=== PATIENT | male | born 1995 | race Caucasian/White ===

== ENCOUNTER 2023-05-16 18:49 | Emergency (ER) | payer OTHER, SELFPAY ==
--- NOTE | ~2023-05-16 | XR_ITS ---
EXAMINATION: XR chest 2V Exam Date/Time: 05/16/2023 19:10 [employer]E [employer] HISTORY: chest pain shortness of breath Comparison: None. RESULT: Lines, tubes, and devices: None. Lungs and pleura: Clear. Cardiomediastinal silhouette: Normal. Other: No acute osseous or upper abdominal finding. IMPRESSION: No acute cardiopulmonary process. Reviewed, dictated and finalized at location K. YLENE [employer]
--- NOTE | 2023-05-16 18:53 | ECG_ITS ---
Measurements Intervals [place] Rate: 104 P: 52 NH: 166 QRS: -40 QRSD: 100 T: 21 QT: 338 QTc: 446 Interpretive Statements SINUS TACHYCARDIA MARKED LEFT AXIS DEVIATION [QRS AXIS < -30] OTHERWISE WITHIN NORMAL LIMITS ] NO PREVIOUS ECG AVAILABLE FOR COMPARISON Electronically Signed On 05-17-2023 7:38:12 DEGREE CLERK by Gene Duggan M.D.
[2023-05-16 18:59] VITALS: BP 139/86; PULSE 111; RESP 20; TEMP 36.3; O2SAT 97
--- NOTE | 2023-05-16 21:54 | PC.NURSE ---
Patient is a hard stick and nurses X3 have attempted to get blood work.
[2023-05-16 22:09] LABS: Basophils Percent Auto 0.5 % (0.2-1.2); Eosinophils Absolute Auto 0.1 K/mm3 (0-0.3); Eosinophils Percent Auto 2.4 % (0-4.4); Hematocrit 44.8 % (42.0-52.0); Hemoglobin 14.2 g/dL (14.0-18.0); Immature Granulocyte Absolute 0.04 K/mm3 (0.00-0.031); Immature Granulocyte Percent A 0.7 % (0-0.5); Lymphocytes Absolute Auto 1.05 K/mm3 (0.9-3.2); Lymphocytes Percent Auto 18.4 % (18.3-44.2); Mean Corpuscular HGB Conc 31.7 g/dl (32-36); Mean Corpuscular Hemoglobin 28.7 pg (26-34); Mean Corpuscular Volume 90.7 fl (80-100); Mean Platelet Volume 9.3 fl (7.4-10.4); Monocytes Absolute Auto 0.7 K/mm3 (0.1-0.6); Monocytes Percent Auto 12.1 % (2.6-8.5); Neutrophils Absolute Auto 3.8 K/mm3 (1.3-6.7); Neutrophils Percent Auto 65.9 % (45.5-73.1); Platelet Count Result 230 k/mm3 (150-375); Red Blood Count 4.94 M/mm3 (4.6-6.20); Red Cell Distribution Width 13.9 % (11.5-14.5); White Blood Count 5.7 K/mm3 (4.5-10.0)
--- NOTE | 2023-05-16 22:09 | PC.NURSE ---
Per patient and family, the tech attempted to get blood on patient at approx 1730 and was unsuccessful. RN was not aware at that time. Blood obtained by gila Alvarez RN
[2023-05-16 22:20] LABS: Alanine Aminotransferase 53 U/L (6-50); Albumin Level 4.2 g/dL (3.5-5.1); Alkaline Phosphatase 66 U/L (38-126); Anion Gap 10 mmol/L (8-16); Aspartate Amino Transferase 33 U/L (17-59); Bilirubin,Total 0.6 mg/dL (0.2-1.3); Blood Urea Nitrogen 12 mg/dL (9-20); Calcium 9.2 mg/dL (8.4-10.2); Carbon Dioxide 21 mmol/L (22-30); Chloride 108 mmol/L (98-107); Estimated CRCL calculation 117 ml/min; Estimated Glomerular Filt Rate > 60; Glucose 97 mg/dL (65-110); Lipase 69 U/L (23-300); Potassium 3.8 mmol/L (3.4-5.0); Sodium 139 mmol/L (137-145)
[2023-05-16 22:21] LABS: INR 0.9; Prothrombin Time 12.8 Seconds (11.1-14.7)
[2023-05-16 22:22] LABS: Partial Thromboplastin Time 25.7 SECONDS (22.3-36.8)
[2023-05-16 22:32] LABS: Troponin I < 0.012 ng/mL (0.000-0.034)
[2023-05-16 23:17] VITALS: O2SAT 97
[2023-05-16 23:47] VITALS: PULSE 93
[2023-05-16 23:50] VITALS: BP 156/80; PULSE 91; RESP 14; O2SAT 98
[2023-05-17] MEDS: ASPIRIN 81 MG CHEWABLE TABLET 324 MG PO (00:10)
[2023-05-17 00:23] VITALS: PULSE 83; RESP 21; O2SAT 99
[2023-05-17 00:33] VITALS: PULSE 87; RESP 18; O2SAT 100
[2023-05-17 00:45] VITALS: PULSE 90; RESP 11; O2SAT 100
--- NOTE | 2023-05-17 00:50 | ED.CHESTPAIN ---
HPI - Chest Pain General Chief Complaint: Chest Pain Stated Complaint: chest pain Time Seen by Provider: 05/17/23 00:17 Source: patient Mode of arrival: ambulatory Limitations: no limitations History of Present Illness HPI narrative: This is a 28-year-old male that presents to the emergency department for intermittent chest pain. Ongoing over the last several weeks. Reports the pain is burning in nature. He has tried Pepcid with some relief. Denies fever, shortness of breath or lower extremity edema. Related Data Allergies Allergy/AdvReac Type Severity Reaction Status Date / Time amoxicillin Allergy Unknown Swelling Verified 05/16/23 18:50 Penicillins Allergy Unknown Swelling Verified 05/16/23 18:50 Review of Systems Review of Systems: CONSTITUTIONAL: Denies fever CARDIOVASCULAR: Reports chest pain. Denies edema. RESPIRATORY: Denies dyspnea. GASTROINTESTINAL: Denies abdominal pain, nausea, vomiting All systems reviewed & are unremarkable except as noted in HPI and below PMFSH Past Medical History Medical History (Updated 05/17/23 @ 00:58 by Gladis Corbin PA-C) History of migraine headaches Social History Social History (Updated 05/17/23 @ 00:57 by Gladis Corbin PA-C) Smoking status: Current every day smoker Exam Narrative: GENERAL: Well-appearing, well-nourished, and in no acute distress. HEAD: Normocephalic, atraumatic. EYES: EOMI. CHEST: Clear to auscultation. No respiratory distress. No wheezes rales or rhonchi HEART: Regular rate and rhythm. No murmur heard. Normal peripheral pulses. ABDOMEN: Soft, nontender, nondistended, normal active bowel sounds. EXTREMITIES: Normal range of motion. No edema. SKIN: Warm, dry, no rash. NEURO: No focal deficits. Alert and oriented x3. PSYCH: Normal mood and affect Course Course Emergency Course: Patient updated on his workup thus far. Resting comfortably. He refuses any further evaluation or treatment Vital Signs Vital signs: Vital Signs Temperature 97.4 F L 05/16/23 18:59 Pulse Rate 111 H 05/16/23 18:59 Respiratory Rate 20 05/16/23 18:59 Blood Pressure 139/86 05/16/23 18:59 Pulse Oximetry 97 05/16/23 18:59 Oxygen Delivery Room Air 02/04/24 18:59 Temperature 97.4 F L 05/16/23 18:59 Pulse Rate 91 05/16/23 23:50 Respiratory Rate 14 05/16/23 23:50 Blood Pressure 156/80 H 05/16/23 23:50 Pulse Oximetry 98 05/16/23 23:50 Oxygen Delivery Room Air 05/16/23 18:59 MDM - Chest Pain MDM Narrative Medical decision making narrative: Patient presents to the emergency department for intermittent chest pain ongoing over the last several weeks. Tachycardic upon arrival, this normalized without intervention. Patient resting comfortably upon my evaluation, in no acute distress. CBC and metabolic panel without concerning findings. EKG without acute ST changes in baseline troponin is negative. His chest x-ray is normal. Patient updated on his workup thus far. Resting comfortably. He refuses any further evaluation or treatment. He will be started on Protonix. He was instructed to return at any time for further evaluation and management Differential Diagnosis Differential diagnosis: Likely stable angina, atypical chest pain, costochondritis, chest pain and other (GERD) Lab Data Attestation: I reviewed the patient's lab results. 05/16/23 22:03 05/16/23 22:03 Labs: Lab Results 05/16/23 Range/Units 22:03 WBC 5.7 (4.5-10.0) K/mm3 RBC 4.94 (4.6-6.20) M/mm3 Hgb 14.2 (14.0-18.0) g/dL Hct 44.8 (42.0-52.0) % MCV 90.7 (80-100) fl MCH 28.7 (26-34) pg MCHC 31.7 L (32-36) g/dl RDW 13.9 (11.5-14.5) % Plt Count 230 (150-375) k/mm3 MPV 9.3 (7.4-10.4) fl Immature Gran % (Auto) 0.7 H (0-0.5) % Neut % (Auto) 65.9 (45.5-73.1) % Lymph % (Auto) 18.4 (18.3-44.2) % [place] % (Auto) 12.1 H (2.6-8.5) % Eos % (Auto) 2.4 (0-4.4) % Baso % (Auto) 0.5 (0.2
== END 2023-05-17 00:59 | disposition home or self-care (01) ==
LOC: ANHED 05-17 00:51
PROVIDERS: Emergency Medicine; Emergency Provider Physician Assistant
DX: R07.9 Chest pain, unspecified (principal); F17.200 Nicotine dependence, unspecified, uncomplicated
CPT/HCPCS: 36415; 71046; 80053; 83690; 84484; 85025; 85610; 85730; 93005; 99284; A9270

== ENCOUNTER 2023-05-31 18:18 | Emergency (ER) | payer OTHER, SELFPAY ==
[2023-05-31 18:23] VITALS: BP 148/93; PULSE 103; RESP 16; TEMP 36.7; O2SAT 99
--- NOTE | 2023-05-31 19:03 | ED.SKABFB ---
HPI - Skin/Abscess/Foreign Bdy General Chief complaint: Skin/Abscess/Foreign Body Stated complaint: Foot Pain Time Seen by Provider: 05/31/23 19:10 Source: patient, family (Significant other) and RN notes reviewed Mode of arrival: ambulatory Limitations: no limitations History of Present Illness HPI narrative: Patient presents today with a foreign body sensation to the bottom of his right foot times 2-5 days. He is unsure of the timing. He is unsure what he stepped on. His significant other pulled out part of a foreign body a few days ago, but patient still continues to feel foreign body sensation. States the area is now swollen and there is a dark spot in the center. He is up-to-date on his tetanus vaccine. Related Data Allergies Allergy/AdvReac Type Severity Reaction Status Date / Time amoxicillin Allergy Unknown Swelling Verified 05/31/23 18:24 Penicillins Allergy Unknown Swelling Verified 05/31/23 18:24 Review of Systems Review of Systems: CONSTITUTIONAL: Denies body aches, fever, chills, or sweats. EYES: Denies visual changes, redness, or discharge. ENT: Denies rhinorrhea, congestion, sore throat, or otalgia. CARDIOVASCULAR: Denies chest pain, palpitations, or edema. RESPIRATORY: Denies cough or dyspnea. GASTROINTESTINAL: Denies abdominal pain, nausea, vomiting, or diarrhea. GENITOURINARY: Denies dysuria or hematuria. SKIN: Denies rash, itching, or wounds.+ foreign body sensation MUSCULOSKELETAL: Denies back pain, joint pain, or myalgia. NEUROLOGIC: Denies headache, numbness, tingling, or weakness. PSYCH: Denies depression or anxiety. PMFSH Past Medical History Medical History History of migraine headaches Social History Social History Smoking status: Current every day smoker Comments At time of signature, I have reviewed and agree with nursing past medical, surgical, social and family history unless otherwise noted. Please see nursing chart for further information. There is no relevant family history pertinent to the presenting complaint Exam Narrative: GENERAL: Well-appearing, well-nourished, and in no acute distress. HEAD: Normocephalic, atraumatic. EYES: EOMI. No redness or drainage. Conjunctivae normal. ENT: Mucous membranes pink and moist. NECK: Normal AROM. CHEST: No respiratory distress. EXTREMITIES: Normal range of motion. No edema. SKIN: Warm, dry, no rash. Capillary refill normal. Normal skin turgor. Calloused area to the lateral right midfoot, plantar aspect that is tender to palpation and has a tiny dark area in the center. No obvious swelling. NEURO: No focal deficits. Alert and oriented x3. Gait steady. PSYCH: Normal affect. No signs of depression or anxiety. Course Course Level of Care: Express Care Visit Vital Signs Vital signs: Vital Signs Temperature 98.0 F 05/31/23 18:23 Pulse Rate 103 H 05/31/23 18:23 Respiratory Rate 16 05/31/23 18:23 Blood Pressure 148/93 H 05/31/23 18:23 Pulse Oximetry 99 05/31/23 18:23 Oxygen Delivery Room Air 05/31/23 18:23 Temperature 98.0 F 05/31/23 18:23 Pulse Rate 103 H 05/31/23 18:23 Respiratory Rate 16 05/31/23 18:23 Blood Pressure 148/93 H 05/31/23 18:23 Pulse Oximetry 99 05/31/23 18:23 Oxygen Delivery Room Air 05/31/23 18:23 Reviewed Procedures Foreign Body Removal Foreign Body #1: Foreign Body Removal Date: 05/31/23 Foreign Body Removal Time: 18:28 Site: right and foot Description of foreign body: other (Possibly [place] ornament shard) Sedation/Analgesia: other (1% lidocaine installation) Technique: manual removal and removal with forceps ( after tiny incision with scapel) Complications: none Neurovascular: no change from pre-procedure Foreign Body Removal Narrative: Cleansed with chlorhexidine. Forei
== END 2023-05-31 19:11 | disposition home or self-care (01) ==
PROVIDERS: Emergency Provider Nurse Practitioner
DX: S90.851A Superficial foreign body, right foot, initial encounter (principal); W22.8XXA Striking against or struck by other objects, initial encounter; F17.200 Nicotine dependence, unspecified, uncomplicated
CPT/HCPCS: 10120; 99213; G0463

== ENCOUNTER 2023-10-07 14:42 | Emergency (ER) | payer OTHER, SELFPAY ==
[2023-10-07 15:00] VITALS: BP 121/81; PULSE 90; RESP 16; TEMP 36.8; O2SAT 95
--- NOTE | 2023-10-07 15:27 | ED.SKABFB ---
HPI - Skin/Abscess/Foreign Bdy General Chief complaint: Skin/Abscess/Foreign Body Stated complaint: Rash Time Seen by Provider: 10/07/23 15:10 Source: patient, RN notes reviewed and old records reviewed Mode of arrival: ambulatory Limitations: no limitations History of Present Illness HPI narrative: 28 year old male who preents to express care with complaints of rash to his groin and scrotum for several months with increased symptoms for the past 2-3 days. Patient reports that it is red and irritated and does have some itching. He reports that he has tried cornstarch to area and OTC ointments without resolution. Patient denies any fevers, chills or sweats. MD complaint: rash Onset (ago): day(s) (increased symptoms past 3 days, rash for several months) Location: genitals (scrotum and inner legs groin) Severity scale (1-10): 3 Treatments prior to arrival: OTC topical medication and other (cornstarch) Related Data Allergies Allergy/AdvReac Type Severity Reaction Status Date / Time amoxicillin Allergy Unknown Swelling Verified 10/07/23 15:00 Penicillins Allergy Unknown Swelling Verified 10/07/23 15:00 Review of Systems Review of Systems: CONSTITUTIONAL: Denies fever, chills, or sweats. CARDIOVASCULAR: Denies chest pain, palpitations, or edema. RESPIRATORY: Denies cough or dyspnea. SKIN: Reports red irritated tissue in groin and to scrotum which lazo and itches MUSCULOSKELETAL: Denies joint pain or myalgia. NEUROLOGIC: Denies headache, numbness, or weakness. All systems reviewed & are unremarkable except as noted in HPI and below PMFSH Past Medical History Medical History (Updated 10/09/23 @ 11:35 by Indiana Salazar NP) History of migraine headaches Meningitis Surgical History Surgical History (Updated 10/09/23 @ 11:36 by Indiana Salazar NP) History of placement of ear tubes Social History Social History (Updated 10/09/23 @ 11:38 by Indiana Salazar NP) Smoking packs per day: 1 Smoking cigarettes per day: 20.0 Years smoked: 18 Smoking pack-years: 18.00 Smoking status: Former smoker Tobacco type: cigarettes Alcohol intake: unknown Substance use: unknown Gender identity (if verbalized by the patient): Male Comments At time of signature, agree with nursing past medical, surgical, social and family history. There is no relevant family history pertinent to the presenting complaint Exam Narrative: GENERAL: Well-appearing, well-nourished,obese and in no acute distress. HEAD: Normocephalic, atraumatic. EYES: PERRLA, conjunctivae clear, and EOMI. ENT: Mucous membranes moist. Oropharynx without edema, erythema or lesions. NECK: Supple. No lymphadenopathy CHEST: Clear to auscultation. No respiratory distress.SAO2 95% on room air HEART: Regular rate and rhythm. SKIN: Warm, dry.? Patches of erythema with irritation to groins bilaterally and to scrotum no drainage noted reports itching and some burning of tissue NEURO:? Alert and oriented x3. PSYCH: Normal mood and affect Course Course Emergency Course: Patient is aware of diagnosis, understands and agrees to treatment plan.? Anticipatory guidance given.? Patient agrees to follow-up as directed and is aware of reasons to seek care at the emergency department. Portions of this record may have been created with voice recognition software Level of Care: Express Care Visit Vital Signs Vital signs: Vital Signs Temperature 36.8 C 10/07/23 15:00 Pulse Rate 90 10/07/23 15:00 Respiratory Rate 16 10/07/23 15:00 Blood Pressure 121/81 10/07/23 15:00 Pulse Oximetry 95 10/07/23 15:00 Temperature 36.8 C 10/07/23 15:00 Pulse Rate 90 10/07/23 15:00 Respiratory Rate 16 10/07/23 15:00 Blood Pressure 121/81 10/07/23 15:00 Pulse Oximetry 95 10/07/23 15:00 Reviewed MDM - Skin/Abscess/Foreign Bdy MDM Narrative Medical decision making narrative: Does not appear at this time to be e
== END 2023-10-07 15:39 | disposition home or self-care (01) ==
PROVIDERS: Emergency Provider Registered Nurse
DX: B37.2 Candidiasis of skin and nail (principal); Z87.891 Personal history of nicotine dependence; Z86.61 Personal history of infections of the central nervous system
CPT/HCPCS: 99213; G0463

== ENCOUNTER 2024-07-11 17:08 | Emergency (ER) | payer OTHER, SELFPAY ==
[2024-07-11 17:21] VITALS: BP 119/85; PULSE 106; RESP 18; TEMP 37.1; O2SAT 94
--- NOTE | 2024-07-11 17:28 | ED_ITS ---
HPI - Skin/Abscess/Foreign Bdy General Chief complaint: Skin/Abscess/Foreign Body Stated complaint: ABSCESS UNDER R ARM Time Seen by Provider: 07/11/24 17:10 Source: patient and RN notes reviewed Mode of arrival: ambulatory Limitations: no limitations History of Present Illness HPI narrative: 29-year-old male presents to the [facility] complaining of possible abscess in his right armpit. Patient states that he had a cyst-like structure under his armpit that he picked that on Wednesday about 4 days ago. Since then it became increasingly red and swollen and he decided to pop the wound open and now is continues to drain. He said the drainage was purulent and bloody. He has a history of type 2 diabetes otherwise no significant past medical history. Related Data Home Medications ?Medication ?Instructions ?Recorded ?Confirmed ?Last Taken ?Type cyclobenzaprine 5 mg tablet mg 07/11/24 Unknown History dulaglutide 4.5 mg/0.5 mL mg subcut 07/11/24 Unknown History subcutaneous pen injector (Trulicity) gabapentin 300 mg capsule mg 07/11/24 Unknown History levocetirizine 5 mg tablet mg 07/11/24 Unknown History Allergies Allergy/AdvReac Type Severity Reaction Status Date / Time amoxicillin Allergy Unknown Swelling Verified 07/11/24 17:18 Penicillins Allergy Unknown Swelling Verified 07/11/24 17:18 Review of Systems Review of Systems: CONSTITUTIONAL: Denies fever, chills, or sweats. EYES: Denies visual changes, redness, or discharge. ENT: Denies rhinorrhea, congestion, sore throat, or otalgia. CARDIOVASCULAR: Denies chest pain, palpitations, or edema. RESPIRATORY: Denies cough or dyspnea. GASTROINTESTINAL: Denies abdominal pain, nausea, vomiting, or diarrhea. GENITOURINARY: Denies dysuria or hematuria. SKIN: Denies rash or itching. Positive for wound under right armpit. MUSCULOSKELETAL: Denies back pain, joint pain, or myalgia. NEUROLOGIC: Denies headache, numbness, or weakness. PSYCHIATRIC: Denies anxiety or depression. All other systems reviewed are negative, except as documented in HPI. [facility]LY [facility], [facility] Past Medical History Medical History Meningitis History of migraine headaches Surgical History Surgical History History of placement of ear tubes Social History Social History Smoking packs per day: 1 Smoking cigarettes per day: 20.0 Years smoked: 18 Smoking pack-years: 18.00 Smoking status: Former smoker Tobacco type: cigarettes Alcohol intake: unknown Substance use: unknown Gender identity (if verbalized by the patient): Male Comments At the time of my signature, I reviewed and agree with the nursing past medical, surgical, social, and family history. There is no relevant family history pertinent to the patient complaint. Exam Narrative: GENERAL: This is a well-nourished, well-developed adult, in no apparent distress. They are non ill-appearing, nontoxic appearing. HEAD: normocephalic, atraumatic. EYES: Sclera clear/white. Vision is grossly intact. EARS: External ears normal, auditory canals clear and without drainage, TMs normal without perforation. Hearing grossly intact. NOSE: External nose normal with no obvious nasal discharge, nares without redness, no rhinorrhea. THROAT: Mucous membranes moist, posterior pharynx clear. NECK: Neck supple, non-tender without lymphadenopathy, masses or thyromegaly. CARDIOVASCULAR: Regular rate and rhythm without murmurs, gallops, or rubs. RESPIRATORY: Clear to auscultation. Breath sounds equal bilaterally. No wheezes, rales, or rhonchi. GASTROINTESTINAL: Abdomen soft, non-tender, nondistended. Bowel sounds are active. No hepato-splenomegaly, or palpable masses. No guarding. SKIN: Right axilla: Wound present under the axilla that is open and draining. Scant bloody drainage present. His tender to palpation to the wound. Wound measures approximately less than 0.5 cm x 0.5 cm. There is no induration or area of fluctuance NEURO: awake, alert, and oriented to person, place and time. There were no obvious focal neurologic abnormalities. EXTREMITIES: No joint tenderness, effusion, or edema noted. BACK: Nontender without deformity. No CVA tenderness. Course Course Level of Care: Express Care Visit Vital Signs Vital signs: Vital Signs Temperature 98.7 F 07/11/24 17:21 Pulse Rate 106 H 07/11/24 17:21 Respiratory Rate 18 07/11/24 17:21 Blood Pressure 119/85 07/11/24 17:21 Pulse Oximetry 94 07/11/24 17:21 Temperature 98.7 F 07/11/24 17:21 Pulse Rate 106 H 07/11/24 17:21 Respiratory Rate 18 07/11/24 17:21 Blood Pressure 119/85 07/11/24 17:21 Pulse Oximetry 94 07/11/24 17:21 Reviewed MDM - Skin/Abscess/Foreign Bdy MDM Narrative Medical decision making narrative: Patient wound in right axilla is patent and draining. There is no area of fluctuance or induration, therefore there is no indication for an I and D at this time. Culture was obtained will be sent off for further evaluation. We will will treat empirically with doxycycline. The patient will be notified if his culture is not susceptible to doxycycline and another antibiotic will be ordered. Patient was given resources for diabetes education as he reports he is newly diabetic and and he isn't well educated on the subject. Discussed physical exam findings. Advised supportive measures and signs/symptoms to go to the ER. Pt is appropriate for outpt treatment and f/u. Differential Diagnosis Differential diagnosis: Likely abscess of skin or subcutaneous tissue, cellulitis and other (Suppurative hydradenitis) Critical Care Time Critical Care Time Critical Care Time: No Discharge Plan Discharge Clinical Impression: Abscess of skin or subcutaneous tissue Qualifiers: Site of cutaneous abscess: extremity Site of cutaneous abscess of extremity: axilla Laterality: right Qualified Code(s): L02.411 - Cutaneous abscess of right axilla Patient Disposition: Home, Self-Care Condition: Stable Instructions: Antibiotic Form, Abscess (ED) Additional Instructions: DO NOT pick at the area. This will only make the area worse and drive infection deeper. Shower and wash with soapy water. Keep area clean and dry. Take all the antibiotics as prescribed. Make sure to keep a dressing in place especially while it is draining By warm compresses 4 times a day to help promote drainage he from the site. A culture was sent off from her axilla. If the culture result is not effective on current treatment you will be contacted in the antibiotic will be changed. Follow up with PCP in 3 days. With emergency department if he has increased redness, swelling, fevers or your symptoms are getting worse. Patient Language: Citizen Of [place] Prescriptions: New doxycycline monohydrate 100 mg capsule 100 mg PO BID 7 Days Qty: 14 0RF No Action gabapentin 300 mg capsule cyclobenzaprine 5 mg tablet levocetirizine 5 mg tablet Trulicity 4.5 mg/0.5 mL pen injector SUBCUT Follow-up/Referrals: Milvia,Marcial [Other] Time of Disposition: 18:03
== END 2024-07-11 18:04 | disposition home or self-care (01) ==
DX: L02.411 Cutaneous abscess of right axilla (principal); Z87.891 Personal history of nicotine dependence; Z86.61 Personal history of infections of the central nervous system
CPT/HCPCS: 87070; 87075; 87205; 99213; G0463

== ENCOUNTER 2024-11-09 17:46 | Emergency (ER) | payer OTHER, SELFPAY ==
--- NOTE | ~2024-11-09 | CT_ITS ---
EXAMINATION: CT abdomen pelvis w con DATE: 11/09/2024 19:55 INDICATION: Upper abdominal pain TECHNIQUE: Computed tomography (CT) of the abdomen and pelvis was performed with 100 cc Omnipaque 350 intravenous contrast. The dose-length product was 1538.51 mGy-cm. Automated exposure control and ite rative reconstruction technique were employed. COMPARISON: None. FINDINGS: Lung bases unremarkable. Heart size normal. No significant pleural or pericardial effusion. Fatty infiltration of the liver. Spleen, pancreas, adrenal glands and kidneys are unremarkable. Nono bstructive bowel gas pattern. No free air or free fluid. Normal appendix. No significant vascular abn ormality. No lymphadenopathy. IMPRESSION: 1. No acute abdominal abnormality. Reviewed, dictated and finalized at location B.
--- OUTSIDE RECORDS SUMMARY | 2024-11-09 17:49 | XMS_ITS | Clinical Summary ---
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 15 Tab 0 6 Active HYDROcodone-stephanie taminophen (NORCO) 5-325 MG TabletIndicatio ns: rib, initial encounter Take 1 Tablet by mouth every 4 hours as needed for Severe pain. 30 Tablet 4 Active naloxone HCl (Narcan) 4 MG/0.1ML Liquid 1 [place] by Nasal route as needed for Opioid Reversal. Administer in one nostril for symptoms of overdose (severe sleepiness, breathing problems, not responsive). Call 911. May repeat 1 spray in alternate nostril in 2-3 minutes if needed. 2 Each 4 Active naproxen (NAPROSYN) 500 MG Tablet Take 1 Tablet by mouth 2 times daily (with meals). 30 Tablet 4 Active Active Problems Problem Noted Date Diagnosed Date Abscess and cellulitis 06/25/2015 Tobacco abuse 06/25/2015 Family History Medical History Relation Name Comments Diabetes Maternal Grandfather Heart Disease Mother Relation Name Status Comments Maternal Grandfather Mother Social History Tobacco Use Types Packs/Day Years Used Date Smoking Tobacco: Former Cigarettes Smokeless Tobacco: Never Tobacco Cessation:Counseling Given: Not Answered Alcohol Use Standard Drinks/Week Comments No 0 (1 standard drink = 0.6 oz pur e alcohol) Sex and Gender Information Value Date Recorded Sex Assigned at Not on file Legal Sex Male 9:13 PM CDT Gender Identity Not on file Sexual Orientation Not on file Last Filed Vital Signs Vital Sign Reading Time Taken Comments Blood Pressure 133/58 11/17/2023 3:45 AM CDT Pulse 94 11/17/2023 5:00 AM CDT Temperature 37 C (98.6 F) 11/17/2023 12:29 AM CDT Respiratory Rate 19 11/17/2023 12:29 AM CDT Oxygen Saturation 99% 11/17/2023 5:00 AM CDT Inhaled Oxygen Concentration - - Weight 147.4 kg (325 lb) 11/17/2023 12:29 AM CDT Height 165.1 cm (5' 5) 11/17/2023 12:29 AM CDT Body Mass Index 54.08 11/17/2023 12:29 AM CDT Plan of Treatment Health Maintenance Due Date Last Done Comments Hepatitis C Virus (HCV) Screening 1993 Human Papillomavirus (HPV) Immunization (1 - Male 3-dose series) 2008 Hepatitis B Immunization (1 of 3 - 19+ 3-dose series) 2012 SARS-COV-2 Immunization (2023- season) 2023 Influenza Immunization (#1) 2024 Respiratory Syncytial Virus (RSV) Immunization (Adult) (1 - 1-dose 75+ series) 2068 DTaP/Tdap/Td Immunization Discontinued 11/02/2023 TdaP Immunization Completed 11/02/2023 Meningococcal Immunization (ACWY) Aged Out No longer eligible based on patient's age to complete this topic Pneumococcal Immunization Combined Aged Out No longer eligible based on patient's age to complete this topic Rotavirus Immunization Aged Out No lo nger eligible based on patient's age to complete this topic Insurance MEDICAID [facility] Care Teams Frozen Yogurt Maker Relationship Specialty Start Date End Date Marcial Steel MD [address] [place] [id number] PCP - General Family Medicine 11/17/23 Arvin Mendieta MD General Surgery 06/24/15
--- OUTSIDE RECORDS SUMMARY | 2024-11-09 17:49 | XMS_ITS | Encounter Summary ---
Author Organization [facility] Address [address] [facility] [place] [address] Phone Care Team Providers Care Heel Sprayer Name Role Phone Arvin Mendieta MD Unavailable [phone] Marcial Steel MD Primary Care Provider + Reason for Referral * PT/OT/ST (Routine) - Authorized Specialty Diagnoses / Procedures Referred By Contac t Referred To Contact Physical Therapy Diagnoses Pain of left hip joint Marcial Steel MD [address] [place] [address] [address] [place] [address] Phone: tel: fax: [facility] [address] [address] Phone: tel: fax: Referral ID Status Reason Start Date Expiration Date V isits Requested Visits Authorized [id number] Authorized 02/03/2024 50 60 Scheduling Instructions Encounter Details Date Type Department Care Team (Late st Contact Info) Description 02/03/2024 Transcribe Orders [facility] [address] [place] [address] Marcial Steel MD [address] [facility] [address] [place] [address] Pain of left hip joint (Primary Dx) Social History Tobacco Use Types Packs/Day Years Used Date Smoking Tobacco: Former Cigarettes Smokeless Tobacco: Never Alcohol Use Standard Drinks/Week Comments No 0 (1 standard drink = 0.6 oz pur e alcohol) Sex and Gender Information Value Date Recorded Sex Assigned at Not on file Legal Sex Male 9:13 PM CDT Gender Identity Not on file Sexual Orientation Not on file documented as of this encounter Plan of Treatment Scheduled Referrals Name Type Priority Associated Diagnoses Orde r Schedule PHYSICAL THERAPY REFERRAL Outpatient Referral Routine Pain of left hip joint Expected: 02/03/2024, Expires: 02/02/2025 documented as of this encounter Visit Diagnoses Diagnosis Pain of left hip joint- Primary documented in this encounter Care Teams Heel Sprayer Relationship Specialty Start Date End Date Marcial Steel MD [address] [facility] [address] [place] [address] PCP - General Family Medicine 11/17/23 Arvin Mendieta MD General Surgery 06/24/15 documented as of this encounter
[2024-11-09 17:53] VITALS: BP 156/77; PULSE 80; RESP 16; TEMP 36.6; O2SAT 95
--- NOTE | 2024-11-09 17:55 | ED_ITS ---
HPI - Nausea/Vomiting/Diarrhea General Chief complaint: Nausea/Vomiting/Diarrhea <Virginia JeanFitz López TECHNOLOGY SOLUTIONS ARCHITECT - Last Filed: 11/09/24 17:58> Stated complaint: N/V/D X3D <Virginiael López TECHNOLOGY SOLUTIONS ARCHITECT - Last Filed: 11/09/24 17:58> Time Seen by Provider: 11/09/24 17:50 <Virginia López TECHNOLOGY SOLUTIONS ARCHITECT - Last Filed: 11/09/24 17:58> Focused HPI: Patient is a 29-year-old male who presents to the ER with abdominal pain, nausea, vomiting, and diarrhea for the past 2 days. He reports his abdominal pain is in his bilateral upper quadrants. Patient reports he has never had these symptoms before. He reports his pain is approximately 8/10 he has been unable to keep anything down, even water. Patient denies any recent fevers, urinary symptoms, or new onset back pain. He endorses a history of vaping and takes Trulicity 1 time per week. Patient denies any alcohol or drug use. GENERAL: Well-appearing, obese, and in no acute distress. HEAD: Normocephalic, atraumatic. CHEST: Clear to auscultation. ?No respiratory distress. HEART: Regular rate and rhythm.? NEURO: ?Alert and oriented x3. Patient screened in triage and initial orders placed.? ?Additional care and disposition to be based upon?diagnostic testing and treatment. <Virginiael López, TECHNOLOGY SOLUTIONS ARCHITECT - Last Filed: 11/09/24 17:58> Focused HPI: Patient is a 29-year-old male who presents to the ER with abdominal pain, nausea, vomiting, and diarrhea for the past 2 days. He reports his abdominal pain is in his bilateral upper quadrants. Patient reports he has never had these symptoms before. He reports his pain is approximately 8/10 he has been unable to keep anything down, even water. Patient denies any recent fevers, urinary symptoms, or new onset back pain. He endorses a history of vaping and takes Trulicity 1 time per week. Patient denies any alcohol or drug use. GENERAL: Well-appearing, obese, and in no acute distress. HEAD: Normocephalic, atraumatic. CHEST: Clear to auscultation. ?No respiratory distress. HEART: Regular rate and rhythm.? NEURO: ?Alert and oriented x3. Patient screened in triage and initial orders placed.? ?Additional care and disposition to be based upon?diagnostic testing and treatment. <Yamilet Gold PA-C - Last Filed: 11/09/24 23:51> Source: patient <Yamilet Gold PA-C - Last Filed: 11/09/24 23:51> Mode of arrival: ambulatory <Yamilet Gold PA-C - Last Filed: 11/09/24 23:51> Limitations: no limitations <FERMIN Miller Last Filed: 11/09/24 23:51> History of Present Illness HPI Narrative: Agree with above HPI. Reports he was recently diagnosed with diabetes and has had trouble tracking his blood sugars at home due to faulty test strips. < Yamilet Gold PA-C - Last Filed: 11/09/24 23:51> Related Data Home medications: Home Medications ?Medication ?Instructions ?Recorded ?Confirmed ?Last Taken ?Type cyclobenzaprine 5 mg tablet mg 07/11/24 Unknown History dulaglutide 4.5 mg/0.5 mL mg subcut 07/11/24 Unknown History subcutaneous pen injector (Trulicity) gabapentin 300 mg capsule mg 07/11/24 Unknown History levocetirizine 5 mg tablet mg 07/11/24 Unknown History <Virginia López, TECHNOLOGY SOLUTIONS ARCHITECT - Last Filed: 11/09/24 17:58> Allergies/Adverse reactions: Allergies Allergy/AdvReac Type Severity Reaction Status Date / Time amoxicillin Allergy Unknown Swelling Verified 07/11/24 17:18 Penicillins Allergy Unknown Swelling Verified 07/11/24 17:18 <Virginia López, TECHNOLOGY SOLUTIONS ARCHITECT - Last Filed: 11/09/24 17:58> Review of Systems 2 Review of Systems: All systems reviewed & are unremarkable except as noted in HPI. <Yamilet Gold PA-C - Last Filed: 11/09/24 23:51> All systems reviewed & are unremarkable except as noted in HPI and below < FERMIN Miller Last Filed: 11/09/24 23:51> PMFSH Past Medical History Medical History: Medical History Meningitis History of migraine headaches <Virginia López APRN - Last Filed: 11/09/24 17:58> Surgical History Surgical History: Surgical History History of placement of ear tubes <Virginia López APRN - Last Filed: 11/09/24 17:58> Social History Social History: Social History Smoking packs per day: 1 Smoking cigarettes per day: 20.0 Years smoked: 18 Smoking pack-years: 18.00 Smoking status: Former smoker Tobacco type: cigarettes Alcohol intake: unknown Substance use: unknown Gender identity (if verbalized by the patient): Male <Virginia López, TECHNOLOGY SOLUTIONS ARCHITECT - Last Filed: 11/09/24 17:58> Exam 2 Narrative: GENERAL: Well appearing, morbidly obese with BMI of 55.8, non-toxic, in no acute distress. HEAD: Normocephalic, atraumatic. RESPIRATORY: Airway patent, respirations nonlabored. Clear to auscultation bilaterally, no rales, rhonchi, wheezing. CARDIOVASCULAR: Regular rate and rhythm without murmurs, rubs, or gallops. ABDOMINAL: Soft, mild tenderness palpation epigastric region, right upper quadrant, no rebound, nondistended. Normoactive BS. MUSCULOSKELETAL: Moves all extremities. No gross deformities. SKIN: Warm, dry, normal color. NEURO: A&O X3. Speech clear. Steady gait. No ataxic movements. PSYCHIATRIC: Appropriate mood and affect. Normal interaction. <Yamilet Gold PA-C - Last Filed: 11/09/24 23:51> Course Vital Signs Vital signs: Vital Signs Temperature 97.9 F 11/09/24 17:53 Pulse Rate 80 11/09/24 17:53 Respiratory Rate 16 11/09/24 17:53 Blood Pressure 156/77 H 11/09/24 17:53 Pulse Oximetry 95 11/09/24 17:53 Oxygen Delivery Room Air 11/09/24 17:53 Temperature 97.9 F 11/09/24 17:53 Pulse Rate 80 11/09/24 17:53 Respiratory Rate 16 11/09/24 17:53 Blood Pressure 156/77 H 11/09/24 17:53 Pulse Oximetry 95 11/09/24 17:53 Oxygen Delivery Room Air 11/09/24 17:53 <Virginia López APRN - Last Filed: 11/09/24 17:58> Vital Signs Temperature 97.9 F 11/09/24 17:53 Pulse Rate 80 11/09/24 17:53 Respiratory Rate 16 11/09/24 17:53 Blood Pressure 156/77 H 11/09/24 17:53 Pulse Oximetry 95 11/09/24 17:53 Oxygen Delivery Room Air 11/09/24 17:53 Temperature 97.9 F 11/09/24 17:53 Pulse Rate 80 11/09/24 17:53 Respiratory Rate 16 11/09/24 17:53 Blood Pressure 156/77 H 11/09/24 17:53 Pulse Oximetry 95 11/09/24 17:53 Oxygen Delivery Room Air 11/09/24 17:53 <Yamilet Gold PA-C - Last Filed: 11/09/24 23:51> MDM - Nausea/Vomiting/Diarrhea MDM Narrative Medical decision making narrative: Patient presented to ED with 3 day history of nausea, vomiting, diarrhea, diffuse abdominal pain. Vital signs are stable upon arrival. Patient in no acute distress. Afebrile. Laboratory studies with white count of 10.6. Stable H&H. Stable electrolytes. Stable kidney function. Blood glucose on CMP 131. Mild elevation of liver enzymes, AST 124, ALT 134. Total bilirubin within normal range. Lipase within normal range. UA with trace leuk esterase, no other signs of infection. Patient did later report that he has been having intermittent dysuria and white penile discharge. wanting patient tested for STDs. Patient is agreeable to this. Gonorrhea, chlamydia, Trichomonas testing was sent via urine. CT scan of abdomen/pelvis was obtained and without acute significant findings. No infectious etiology. No obstruction. Discussed lab and imaging findings with patient. Discussed likelihood of gastroenteritis. He is feeling better after fluids and supportive therapy. He is able to tolerate p.o. intake. Feel he is safe for discharge home at this time. Discussed continue management of gastroenteritis. Will prescribe Zofran and Bentyl for home. Patient would prefer to be discharged now versus waiting for urine STD testing. He was given information for [facility] system to look up results. He was advised that if the results are positive, he will need to be evaluated further for antibiotics. Patient is agreeable to this. Discussed strict return precautions, advised patient to stay well hydrated. He voiced understanding. Discharged in stable condition. Vital signs stable at time of D/C. <Yamilet Gold PA-C - Last Filed: 11/09/24 23:51> Medical Records Attestation: I reviewed the patient's medical records. <Yamilet Gold PA-C - Last Filed: 11/09/24 23:51> Lab Data Attestation: I reviewed the patient's lab results. <Yamilet Gold PA-C - Last Filed: 11/09/24 23:51> Result diagrams: 11/09/24 18:31 11/09/24 18:31 <Virginia López APRN - Last Filed: 11/09/24 17:58> Labs: Lab Results 11/09/24 11/09/24 11/09/24 Range/Units 18:31 19:59 20:06 WBC 10.6 H (4.5-10.0) K/mm3 RBC 5.21 (4.6-6.20) M/mm3 Hgb 14.8 (14.0-18.0) g/dL Hct 45.8 (42.0-52.0) % MCV 87.9 (80-100) fl MCH 28.4 (26-34) pg MCHC 32.3 (32-36) g/dl RDW 14.5 (11.5-14.5) % Plt Count 294 (150-375) k/mm3 MPV 9.1 (7.4-10.4) fl Immature Gran % (Auto) 0.3 (0-0.5) % Neut % (Auto) 66.6 (45.5-73.1) % Lymph % (Auto) 22.8 (18.3-44.2) % [place] % (Auto) 6.1 (2.6-8.5) % Eos % (Auto) 3.7 (0-4.4) % Baso % (Auto) 0.5 (0.2-1.2) % Lymph # (Auto) 2.42 (0.9-3.2) K/mm3 [place] # (Auto) 0.7 H (0.1-0.6) K/mm3 Eos # (Auto) 0.4 H (0-0.3) K/mm3 Baso # (Auto) 0.1 (0.0-0.1) K/mm3 Abs Immat Gran (auto) 0.03 (0.00-0.031) K/mm3 Absolute Neuts (auto) 7.1 H (1.3-6.7) K/mm3 Absolute Nucleated RBC 0.000 (0.0-0.012) K/mm3 Nucleated RBC % 0.0 (0.0-0.2) % Sodium 135 L (137-145) mmol/L Potassium 4.0 (3.4-5.0) mmol/L Chloride 98 (98-107) mmol/L Carbon Dioxide 28 (22-30) mmol/L Anion Gap 9 (4-12) mmol/L BUN 9 (9-20) mg/dL Creatinine 1.02 (0.7-1.3) mg/dL Estim Creat Clear Calc 128 ml/min Estimated GFR > 60 (59 - ) Glucose 131 H (65-110) mg/dL POC Capillary Glucose 107 H (65-105) mg/dl Calcium 10.2 (8.4-10.2) mg/dL Total Bilirubin 1.2 (0.2-1.3) mg/dL AST 124 H (17-59) U/L ALT 134 H (6-50) U/L Alkaline Phosphatase 55 (38-126) U/L Total Protein 8.9 H (6.3-8.2) g/dL Albumin 4.7 (3.5-5.1) g/dL Lipase 62 (23-300) U/L Urine Color Yellow (Yellow) Urine Appearance Clear (Clear) Urine pH 5.5 (5.0-9.0) Ur Specific [place] 1.020 (1.001-1.035) Urine Protein Negative (Negative) mg/dL Urine Glucose (UA) Negative (Negative) mg/dL Urine Ketones Negative (Negative) mg/dL Ur Blood (Man) Negative (Negative) Urine Nitrate Negative (Negative) Urine Bilirubin Negative (Negative) Urine Urobilinogen 1.0 (<2.0) mg/dL Leukocyte Esterase Rfl Trace H (Negative) DG/UL Urine RBC 0-2 (0-2) /hpf Urine WBC 0-5 (0-3) /hpf Ur Squamous Epith Cells None seen (Few) /hpf Urine Bacteria None seen /hpf Urine Casts 0-2 Urine Opiates Screen Negative (Negative) Urine Methadone Screen Negative (Negative) Ur Barbiturates Screen Negative (Negative) Ur Phencyclidine Scrn Negative (Negative) Ur Amphetamine Screen Negative (Negative) U Benzodiazepines Scrn Negative (Negative) Urine Cocaine Screen Negative (Negative) U Cannabinoids Screen Positive A (Negative) C. trachomatis (PCR) Pending N. gonorrhoeae (PCR) Pending T. vaginalis (PCR) Pending <Virginia López, TECHNOLOGY SOLUTIONS ARCHITECT - Last Filed: 11/09/24 17:58> Lab Results 11/09/24 11/09/24 11/09/24 Range/Units 18:31 19:59 20:06 WBC 10.6 H (4.5-10.0) K/mm3 RBC 5.21 (4.6-6.20) M/mm3 Hgb 14.8 (14.0-18.0) g/dL Hct 45.8 (42.0-52.0) % MCV 87.9 (80-100) fl MCH 28.4 (26-34) pg MCHC 32.3 (32-36) g/dl RDW 14.5 (11.5-14.5) % Plt Count 294 (150-375) k/mm3 MPV 9.1 (7.4-10.4) fl Immature Gran % (Auto) 0.3 (0-0.5) % Neut % (Auto) 66.6 (45.5-73.1) % Lymph % (Auto) 22.8 (18.3-44.2) % [place] % (Auto) 6.1 (2.6-8.5) % Eos % (Auto) 3.7 (0-4.4) % Baso % (Auto) 0.5 (0.2-1.2) % Lymph # (Auto) 2.42 (0.9-3.2) K/mm3 [place] # (Auto) 0.7 H (0.1-0.6) K/mm3 Eos # (Auto) 0.4 H (0-0.3) K/mm3 Baso # (Auto) 0.1 (0.0-0.1) K/mm3 Abs Immat Gran (auto) 0.03 (0.00-0.031) K/mm3 Absolute Neuts (auto) 7.1 H (1.3-6.7) K/mm3 Absolute Nucleated RBC 0.000 (0.0-0.012) K/mm3 Nucleated RBC % 0.0 (0.0-0.2) % Sodium 135 L (137-145) mmol/L Potassium 4.0 (3.4-5.0) mmol/L Chloride 98 (98-107) mmol/L Carbon Dioxide 28 (22-30) mmol/L Anion Gap 9 (4-12) mmol/L BUN 9 (9-20) mg/dL Creatinine 1.02 (0.7-1.3) mg/dL Estim Creat Clear Calc 128 ml/min Estimated GFR > 60 (59 - ) Glucose 131 H (65-110) mg/dL POC Capillary Glucose 107 H (65-105) mg/dl Calcium 10.2 (8.4-10.2) mg/dL Total Bilirubin 1.2 (0.2-1.3) mg/dL AST 124 H (17-59) U/L ALT 134 H (6-50) U/L Alkaline Phosphatase 55 (38-126) U/L Total Protein 8.9 H (6.3-8.2) g/dL Albumin 4.7 (3.5-5.1) g/dL Lipase 62 (23-300) U/L Urine Color Yellow (Yellow) Urine Appearance Clear (Clear) Urine pH 5.5 (5.0-9.0) Ur Specific [place] 1.020 (1.001-1.035) Urine Protein Negative (Negative) mg/dL Urine Glucose (UA) Negative (Negative) mg/dL Urine Ketones Negative (Negative) mg/dL Ur Blood (Man) Negative (Negative) Urine Nitrate Negative (Negative) Urine Bilirubin Negative (Negative) Urine Urobilinogen 1.0 (<2.0) mg/dL Leukocyte Esterase Rfl Trace H (Negative) DG/UL Urine RBC 0-2 (0-2) /hpf Urine WBC 0-5 (0-3) /hpf Ur Squamous Epith Cells None seen (Few) /hpf Urine Bacteria None seen /hpf Urine Casts 0-2 Urine Opiates Screen Negative (Negative) Urine Methadone Screen Negative (Negative) Ur Barbiturates Screen Negative (Negative) Ur Phencyclidine Scrn Negative (Negative) Ur Amphetamine Screen Negative (Negative) U Benzodiazepines Scrn Negative (Negative) Urine Cocaine Screen Negative (Negative) U Cannabinoids Screen Positive A (Negative) C. trachomatis (PCR) Pending N. gonorrhoeae (PCR) Pending T. vaginalis (PCR) Pending <Yamilet Gold PA-C - Last Filed: 11/09/24 23:51> Imaging Data Attestation: I personally reviewed and interpreted this imaging study as follows: < Yamilet Gold PA-C - Last Filed: 11/09/24 23:51> Radiologist's impression: STAT RAD CT abd/pelvis: Impression: Hepatic steatosis. Hepatomegaly. Normal appearing appendix. No free air or intestinal obstruction. Diverticulosis without evidence of diverticulitis. Splenomegaly. <Yamilet Gold PA-C - Last Filed: 11/09/24 23:51> Discharge Plan Discharge Clinical Impression: Gastroenteritis Nausea and vomiting Qualifiers: Vomiting type: unspecified Qualified Code(s): R11.2 - Nausea with vomiting, unspecified <Virginia López APRN - Last Filed: 11/09/24 17:58> Patient Disposition: Home <Virginia López APRN - Last Filed: 11/09/24 17:58> Condition: Stable <Virginia López APRN - Last Filed: 11/09/24 17:58> Instructions: Antibiotic Form, Dehydration (ED), Gastroenteritis (ED), Acute Nausea and Vomiting (ED) <Virginia López APRN - Last Filed: 11/09/24 17:58> Additional Instructions: Utilize zofran as needed for further nausea. Recommend Tylenol, Bentyl as needed for further abdominal discomfort. Increase fluid intake. Recommend electrolyte rich fluids, gatorade, pedialyte, body armour. Recommend clear liquids or bland diet until symptoms improve, such as bananas, rice, applesauce, toast, or crackers. Follow up with your primary care doctor for further evaluation. Return to the ED if you experience worsening or severe symptoms, unable to keep down food or drink, severe pain, fevers, rectal bleeding, vomiting blood, or any other symptoms of concern. Utilize MyChart to look up results of STD testing. If these testings did result positive, you will need to be evaluated for antibiotic regimen. <Virginia López APRN - Last Filed: 11/09/24 17:58> Patient Language: Tanzanian <Virginia López APRN - Last Filed: 11/09/24 17:58> Prescriptions: New dicyclomine 20 mg tablet 20 mg PO TID PRN (Reason: Abdominal Discomfort) Qty: 15 0RF ondansetron 4 mg tablet,disintegrating 4 mg PO Q8H PRN (Reason: nausea and vomiting) Qty: 15 0RF No Action gabapentin 300 mg capsule cyclobenzaprine 5 mg tablet levocetirizine 5 mg tablet Trulicity 4.5 mg/0.5 mL pen injector SUBCUT doxycycline monohydrate 100 mg capsule 100 mg PO BID 7 Days Qty: 14 0RF <Virginia López APRN - Last Filed: 11/09/24 17:58> Follow-up/Referrals: PHYSICIAN NOT ON STAFF,NONSTAFF [Primary Care Provider] - <Virginia López APRN - Last Filed: 11/09/24 17:58> Time of Disposition: 22:27 <Virginia López APRN - Last Filed: 11/09/24 17:58> 22:27 <Yamilet Gold PA-C - Last Filed: 11/09/24 23:51>
[2024-11-09 18:37] LABS: Hematocrit 45.8 % (42.0-52.0); Hemoglobin 14.8 g/dL (14.0-18.0); Immature Granulocyte Percent A 0.3 % (0-0.5); Lymphocytes Absolute Auto 2.42 K/mm3 (0.9-3.2); Mean Corpuscular HGB Conc 32.3 g/dl (32-36); Mean Corpuscular Hemoglobin 28.4 pg (26-34); Mean Corpuscular Volume 87.9 fl (80-100); Nucleated Red Blood Cells Absolute Auto 0.000 K/mm3 (0.0-0.012); Nucleated Red Blood Cells Perc 0.0 % (0.0-0.2); Platelet Count Result 294 k/mm3 (150-375); Red Blood Count 5.21 M/mm3 (4.6-6.20); White Blood Count 10.6 K/mm3 (4.5-10.0)
--- OUTSIDE RECORDS SUMMARY | 2024-11-09 18:43 | XMS_ITS | Encounter Summary ---
Author Organization [facility] Address [address] [facility] [place] [address] Phone Care Team Providers Care Explosive Operator Grenade Name Role Phone Arvin Mendieta MD Unavailable Marcial Steel MD Primary Care Provider + Reason for Referral * PT/OT/ST (Routine) - Authorized Specialty Diagnoses / Procedures Referred By Contac t Referred To Contact Physical Therapy Diagnoses Pain of left hip joint Marcial Steel MD [address] [place] [address] [address] [place] [address] Phone: tel: fax: [facility] [address] [address] Phone: tel: fax: Referral ID Status Reason Start Date Expiration Date V isits Requested Visits Authorized [id number] Authorized 02/03/2024 50 60 Scheduling Instructions Encounter Details Date Type Department Care Team (Late st Contact Info) Description 02/03/2024 Transcribe Orders [facility] [address] [place] [address] Marcial Steel MD [address] [facility] [address] [place] [address] Pain of left hip joint (Primary Dx) [...] Primary documented in this encounter Care Teams Explosive Operator Grenade Relationship Specialty Start Date End Date Marcial Steel MD [address] [facility] [address] [place] [address] PCP - General Family Medicine 11/17/23 Arvin Mendieta MD General Surgery 06/24/15 documented as of this encounter
--- OUTSIDE RECORDS SUMMARY | 2024-11-09 18:43 | XMS_ITS | Clinical Summary ---
Author Organization [facility] Address [address] [place] [address] Phone Care Team Providers Care Waste Specialist Name Role Phone Arvin Mendieta MD Unavailable [...] naloxone HCl (Narcan) 4 MG/0.1ML Liquid 1 Lyman by Nasal route as needed for Opioid [...] age to complete this topic Insurance MEDICAID [facility] Care Teams Waste Specialist Relationship Specialty Start Date End Date Marcial Steel MD [address] [place] [id number] PCP - General Family Medicine 11/17/23 Arvin Mendieta MD General Surgery 06/24/15
[2024-11-09 18:48] LABS: Alanine Aminotransferase 134 U/L (6-50); Albumin Level 4.7 g/dL (3.5-5.1); Alkaline Phosphatase 55 U/L (38-126); Anion Gap 9 mmol/L (4-12); Aspartate Amino Transferase 124 U/L (17-59); Bilirubin,Total 1.2 mg/dL (0.2-1.3); Blood Urea Nitrogen 9 mg/dL (9-20); Calcium 10.2 mg/dL (8.4-10.2); Carbon Dioxide 28 mmol/L (22-30); Chloride 98 mmol/L (98-107); Estimated CRCL calculation 128 ml/min; Estimated Glomerular Filt Rate > 60; Glucose 131 mg/dL (65-110); Lipase 62 U/L (23-300); Potassium 4.0 mmol/L (3.4-5.0); Sodium 135 mmol/L (137-145); Total Protein 8.9 g/dL (6.3-8.2)
[2024-11-09] MEDS: FAMOTIDINE 20 MG/2 ML VIAL IV PUSH (19:06)
[2024-11-09] MEDS: ONDANSETRON INJ 4 MG/2 ML VIAL IV PUSH (19:06)
[2024-11-09] MEDS: SODIUM CHLORIDE 0.9% IV 1,000 ML 999 ML IV CONT (19:06)
[2024-11-09 20:14] LABS: Add Urine Microscopic? YES; Appearance Urine Clear (Clear); Glucose Urine UA Negative (Negative); Leukocyte Esterase Ur Trace LEU/UL (Negative); Nitrate Urine Negative (Negative); Non Pathogenic Casts 0-2; Specific Grav Ur 1.020 (1.001-1.035)
[2024-11-09 20:27] LABS: Cannabinoid Screen Urine Positive (Negative)
[2024-11-09] MEDS: ACETAMINOPHEN 500 MG TABLET 1000 MG PO (21:44)
[2024-11-09] MEDS: METOCLOPRAMIDE HCL INJ 10 MG/2 ML VIAL IV PUSH (21:44)
[2024-11-10 00:32] LABS: Trichomonas Vag PCR NOT DETECTED (NOT DETECTE)
== END 2024-11-09 22:39 | disposition home or self-care (01) ==
PROVIDERS: Registered Nurse; Emergency Provider Physician Assistant
DX: K52.9 Noninfective gastroenteritis and colitis, unspecified (principal); E11.9 Type 2 diabetes mellitus without complications; F17.290 Nicotine dependence, other tobacco product, uncomplicated; Z79.85 Long-term (current) use of injectable non-insulin antidiabetic drugs
CPT/HCPCS: 36415; 74177; 80053; 80307; 81001; 82948; 83690; 85025; 87491; 87591; 87661; 96361; 96374; 96375; 99284; A9270; J1200; J2405; J2765; J7030; Q9967

== ENCOUNTER 2025-01-11 17:27 | Emergency (ER) | payer OTHER, SELFPAY ==
[2025-01-11 17:41] VITALS: BP 143/84; PULSE 107; RESP 18; TEMP 36.8; O2SAT 100
--- NOTE | 2025-01-11 18:04 | ED_ITS ---
HPI - Back Pain/Injury General Chief Complaint: Back Pain/Injury Stated Complaint: Back Pain/Leg Pain Time Seen by Provider: 01/11/25 18:05 Source: patient, RN notes reviewed and old records reviewed Mode of arrival: ambulatory Limitations: no limitations History of Present Illness HPI Narrative: 29-year-old male presents to the [facility] with a 10 day history of back pain radiating down the left leg. States he has a history of left hip pain, no longer taking his gabapentin. Patient reports pain with walking. Denies any saddle anesthesia. No midline tenderness. Denies injury. No rashes, redness, ecchymosis. No loss retention of bowel or bladder. Related Data Home Medications ?Medication ?Instructions ?Recorded ?Confirmed ?Last Taken ?Type cyclobenzaprine 5 mg tablet mg 07/11/24 Unknown Histo ry dulaglutide 4.5 mg/0.5 mL mg subcut 07/11/24 Unknown History subcutaneous pen [facility]or ([facility]) gabapentin 300 mg capsule mg 07/11/24 Unknown History levocetirizine 5 mg tablet mg 07/11/24 Unknown Histor y Allergies Allergy/AdvReac Type Severity Reaction Status Date / Time amoxicillin Allergy Unknown Swelling Verified 07/11/24 17:18 Penicillins Allergy Unknown Swelling Verified 07/11/24 17:18 Review of Systems 2 Review of Systems: All systems reviewed & are unremarkable except as noted in HPI and below Constitutional: Constitutional: Reports no additional constitutional complaints ENT: Reports system reviewed and no additional complaints, except as documented Cardiovascular: Cardiovascular: Reports no additional cardiovascular complaints, Denies chest pain and Denies dyspnea Respiratory: Respiratory: Reports no additional respiratory complaints, Denies chest congestion, Denies cough and Denies dyspnea Musculoskeletal: Musculoskeletal: Reports as per HPI Integumentary/Breasts: Skin/Breast: Reports system reviewed and no additional complaints, except as docu PMFSH Past Medical History Medical History Meningitis History of migraine headaches Surgical History Surgical History History of placement of ear tubes Social History Social History Smoking packs per day: 1 Smoking cigarettes per day: 20.0 Years smoked: 18 Smoking pack-years: 18.00 Smoking status: Former smoker Tobacco type: cigarettes Alcohol intake: unknown Substance use: unknown Gender identity (if verbalized by the patient): Male Comments At the time of my signature, I reviewed and agree with the nursing past medical, surgical, social, and family history. There is no relevant family history pertinent to the patient complaint. Exam 2 Const: General: cooperative, healthy appearing, comfortable, no acute distress, well developed, alert and well nourished Nutritional Appearance: w ell nourished and obese Orientation/consciousness: patient oriented x3 L imitations: no limitations HENMT: Head: normal to inspection Eyes: General: appearance normal, both eyes and all related structures A lignment and Position: alignment normal Neck: Neck: normal visual inspection, full ROM, no lymphadenopathy and no meningeal signs Chest: Chest palpation & inspection: normal inspection of the chest Resp: Effort & Inspection: normal respiratory effort and able to speak in complete sentences Auscultation: clear to auscultation bilaterally, no crackles, no rales, no rhonchi and no wheezes Cardio: Rate: regular rate Back/Spine/Pelvis: Back: No ecchymosis and back tenderness (Low lumbar) Back/spine/pelvis image: 1. Reports pain with movement, changing of position, radiating down left leg. History of chronic left hip pain. No midline tenderness. No loss retention prior bladder. No erythema, ecchymosis. Skin: General skin exam: normal color and no rashes or lesions noted Neuro: General: patient oriented x3, gait normal, moves all extremities and no meningeal signs Cognition (Neuro): normal cognition Speech: normal speech Gait exam (Neuro): Normal gait present Extrem: General: normal to inspection, full ROM, capillary refill normal and normal gait Psych: Appearance: grossly normal and well kempt Mental Status: mental status grossly normal Speech and movement: Normal speech and movement present and Clear speech present Affect: normal affect Attitude: cooperative Course Course Level of Care: Express Care Visit Vital Signs Vital signs: Vital Signs Temperature 98.2 F 01/11/25 17:41 Pulse Rate 107 H 01/11/25 17:41 Respiratory Rate 18 01/11/25 17:41 Blood Pressure 143/84 H 01/11/25 17:41 Pulse Oximetry 100 01/11/25 17:41 Oxygen Delivery Room Air 01/11/25 17:41 Temperature 98.2 F 01/11/25 17:41 Pulse Rate 107 H 01/11/25 17:41 Respiratory Rate 18 01/11/25 17:41 Blood Pressure 143/84 H 01/11/25 17:41 Pulse Oximetry 100 01/11/25 17:41 Oxygen Delivery Room Air 01/11/25 17:41 Reviewed MDM - Back Pain/Injury MDM Narrative Medical decision making narrative: Patient sitting in exam room. Patient is nontoxic, vitals stable. Patient presents with 10 day history of back pain. No injury. History of chronic pain. No red flag symptoms. Patient is appropriate for outpatient treatment with close follow-up Discharge instructions reviewed with patient, as well as provided in writing per nursing staff. The instructions also include specific and strict return/GO TO THE ER as well as f/u information. All questions have been answered, and the patient deny any further questions with discharge and discharge plan. Some parts of this dictation were generated by voice recognition software and may contain typographical and/or grammatical inaccuracies. Differential Diagnosis Differential diagnosis: Likely lumbar radiculopathy, sciatica and strain of lumbar region Critical Care Time Critical Care Time Critical Care Time: No Discharge Plan Discharge Clinical Impression: Low back pain radiating to left leg Patient Disposition: Home Condition: Stable Instructions: Antibiotic Form, Acute Low Back Pain (ED), Lower Back Exercises (ED) Additional Instructions: Take ibuprofen as directed to decrease inflammation and to help pain. Take Baclofen (muscle relaxer) as directed. Do not drink, drive, operate machinery, or do anything dangerous while taking this medication Exercise:Combine aerobic exercise, like walking or swimming, with specific exercises to keep the muscles in your back and abdomen strong and flexible. Proper Lifting:Be sure to lift heavy items with your legs, not your back. Do not bend over to pick something up. Keep your back straight and bend at your knees. Weight:Maintain a healthy weight. Being overweight puts added stress on your lower back. Avoid Smoking:Both the smoke and the nicotine cause your spine to age faster than normal. Proper Posture:Good posture is important for avoiding future problems. A therapist can teach you how to safely stand, sit, and lift. Use warm moist heat to help with pain. Using topical such as Biofreeze, Mando-Cornell or Aspercreme can also help Follow up with Primary provider in 2-3 days, This may become a chronic condition and they will be the one to help manage your pain and order additional testing. Go to the nearest ER if you develop problems with bladder/bowel function, weakness or loss of feeling in one or both of your legs. Patient Language: Romanian Prescriptions: New baclofen 10 mg tablet 10 mg PO TID PRN (Reason: muscle pain) Qty: 15 0RF ibuprofen 600 mg tablet 600 mg PO TID PRN (Reason: fever or pain) Qty: 30 0RF No Action gabapentin 300 mg capsule cyclobenzaprine 5 mg tablet levocetirizine 5 mg tablet Trulicity 4.5 mg/0.5 mL pen injector SUBCUT doxycycline monohydrate 100 mg capsule 100 mg PO BID 7 Days Qty: 14 0RF dicyclomine 20 mg tablet 20 mg PO TID PRN (Reason: Abdominal Discomfort) Qty: 15 0RF ondansetron 4 mg tablet,disintegrating 4 mg PO Q8H PRN (Reason: nausea and vomiting) Qty: 15 0RF Follow-up/Referrals: PHYSICIAN,[employer] [Primary Care Provider, Internal Medicine] Stand Alone Forms: Work/School Release IP Time of Disposition: 18:12
== END 2025-01-11 18:21 | disposition home or self-care (01) ==
PROVIDERS: Emergency Provider Nurse Practitioner
DX: M54.50 Low back pain, unspecified (principal); M79.605 Pain in left leg; Z87.891 Personal history of nicotine dependence
CPT/HCPCS: 99213; G0463